=== PATIENT | male | born 1975 | race Caucasian/White ===

== ENCOUNTER 2016-07-26 06:59 | Inpatient (IN) | payer BC ==
[~2016-07-26] VITALS: Ht 182.9 cm; Wt 95.0 kg
[2016-07-26] MEDS ORDERED: SOD CHLORIDE 0.9% 1,000 ML IV STA (07:12)
[2016-07-26 07:55] LABS: BASOPHILS % 0.4 % (0.0-2.0); EOSINOPHILS # 0.1 10^3/ul (0.0-0.5); EOSINOPHILS % 1.4 % (0.0-7.0); HEMOGLOBIN 10.6 g/dl (14.0-18.0); LYMPHOCYTES # 2.6 10^3/ul (0.8-2.9); MEAN CORPUSCULAR HEMOGLOBIN 28.6 pg (29.0-33.0); MEAN CORPUSCULAR HGB CONC 34.1 g/dl (32.0-37.0); MEAN CORPUSCULAR VOLUME 83.8 fl (82.0-101.0); MEAN PLATELET VOLUME 8.6 fl (7.4-10.4); MONOCYTES % 9.5 % (0.0-11.0); NEUTROPHIL # 6.7 10^3/ul (1.6-7.5); NEUTROPHILS % 63.7 % (39.0-77.0); PLATELET COUNT 344 10^3/UL (140-440); RED BLOOD COUNT 3.69 10^6/ul (4.70-6.10); RED CELL DISTRIBUTION WIDTH 12.8 % (11.5-14.5); UNCORRECTED WBC 10.6 10^3/ul (4.8-10.8); WHITE BLOOD COUNT 10.6 10^3/ul (4.8-10.8)
[2016-07-26 07:58] LABS: ALBUMIN 3.9 g/dl (3.3-4.9)
[2016-07-26 07:59] LABS: INR 1.03; PARTIAL THROMBOPLASTIN TIME 29.4 Sec (25.0-35.0); POTASSIUM 4.5 mmol/L (3.5-5.1); PROTIME 13.5 Sec (12.2-14.2); PT RATIO 1.1
[2016-07-26 08:01] LABS: ALBUMIN/GLOBULIN RATIO 0.95; BILIRUBIN,INDIRECT 0.9 mg/dl (0-1.1); BILIRUBIN,TOTAL 0.9 mg/dl (0.2-1.3); CREATININE 0.91 mg/dl (0.61-1.24)
[2016-07-26 08:02] LABS: CALCIUM 9.6 mg/dl (8.4-10.2)
[2016-07-26 08:04] LABS: CONDITION 1
[2016-07-26 08:30] LABS: ADD UMIC YES; URINE BILIRUBIN (Dip) 1+ (NEGATIVE); URINE BLOOD (Dip) 3+ (NEGATIVE); URINE GLUCOSE (Dip) NEGATIVE (NEGATIVE); URINE KETONES (Dip) NEGATIVE (NEGATIVE); URINE LEUKOCYTE ESTERASE (Dip) NEGATIVE (NEGATIVE); URINE NITRITE (Dip) POSITIVE (NEGATIVE); URINE TOTAL PROTEIN (Dip) 4+ (NEGATIVE); URINE UROBILINOGEN (Dip) 1.0 E.U./dL (0.1-1.0)
[2016-07-26] MEDS ORDERED: SOD CHLORIDE 0.9% 100 ML ONE (08:45)
[2016-07-26] MEDS ORDERED: IOHEXOL 300MG/ML 150 ML BTL ONE (08:45)
[2016-07-26 09:00] LABS: URINE COLOR RED (YELLOW)
[2016-07-26 09:01] LABS: SQUAMOUS EPITHELIAL CELL,UR FEW; URINE RBCS >200 /HPF (0)
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
[2016-07-26] MEDS ORDERED: ONDANSETRON 4 MG INJ IV PRN ×2 (10:00→10:30)
[2016-07-26] MEDS ORDERED: ACETAMINOPHEN 325 MG TAB PO PRN ×2 (10:00→10:30)
[2016-07-26 10:20] VITALS: TEMP 98.2
[2016-07-26] MEDS ORDERED: NACL 0.9% 3 ML SYG IV SCH (10:30)
[2016-07-26] MEDS ORDERED: ACETAMINOPHEN 650 MG SUPP PR PRN (10:30)
[2016-07-26] MEDS ORDERED: DOCUSATE SODIUM 100 MG CAP PO PRN (10:30)
[2016-07-26 10:54] VITALS: BP 123/69; RESP 18
[2016-07-26 11:07] VITALS: BP 123/69; PULSE 86; RESP 18
[2016-07-26] MEDS: DEXTROSE 5%-0.45% NACL 1,000 ML IV SCH (11:20)
[2016-07-26 11:35] LABS: ICTOTEST NEGATIVE (NEGATIVE)
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
[2016-07-26] MEDS: CIPROFLOXACIN 400MG/D5W 200 ML IVPB SCH ×2 (13:54→20:50)
[2016-07-26 14:22] LABS: HEMATOCRIT 29.9 % (42.0-52.0); HEMOGLOBIN 10.3 g/dl (14.0-18.0)
[2016-07-26] MEDS: morphine 2 MG INJ IV PRN ×2 (15:02→23:01)
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
[2016-07-26 20:06] LABS: HEMATOCRIT 28.6 % (42.0-52.0); HEMOGLOBIN 9.8 g/dl (14.0-18.0)
[2016-07-26 20:47] VITALS: BP 122/88; RESP 19
[2016-07-26] MEDS ORDERED: LIDOCAINE 2% JELLY 30 ML TOP ONE (23:30)
[2016-07-27] MEDS ORDERED: SODIUM CHLORIDE 0.9% 1L IRRIG IRR SCH
[2016-07-27] MEDS: DEXTROSE 5%-0.45% NACL 1,000 ML IV SCH ×2 (03:15→12:53)
[2016-07-27] MEDS: morphine 2 MG INJ IV PRN ×2 (07:01→17:55)
[2016-07-27 08:37] VITALS: BP 114/68; RESP 16
[2016-07-27] MEDS: HYDROCODONE/APAP (5/325) TAB PO PRN ×4 (09:09→23:14)
[2016-07-27] MEDS: CIPROFLOXACIN 400MG/D5W 200 ML IVPB SCH ×2 (09:10→20:45)
[2016-07-27 09:26] LABS: BASOPHILS % 0.4 % (0.0-2.0); EOSINOPHILS # 0.1 10^3/ul (0.0-0.5); EOSINOPHILS % 1.1 % (0.0-7.0); HEMATOCRIT 29.1 % (42.0-52.0); HEMOGLOBIN 9.8 g/dl (14.0-18.0); LYMPHOCYTES # 2.3 10^3/ul (0.8-2.9); LYMPHOCYTES % 22.1 % (15.0-51.0); MEAN CORPUSCULAR HEMOGLOBIN 28.3 pg (29.0-33.0); MEAN CORPUSCULAR HGB CONC 33.7 g/dl (32.0-37.0); MEAN PLATELET VOLUME 8.1 fl (7.4-10.4); MONOCYTE # 0.8 10^3/ul (0.3-0.9); MONOCYTES % 7.8 % (0.0-11.0); NEUTROPHILS % 68.6 % (39.0-77.0); PLATELET COUNT 354 10^3/UL (140-440); RED BLOOD COUNT 3.47 10^6/ul (4.70-6.10); RED CELL DISTRIBUTION WIDTH 12.9 % (11.5-14.5); UNCORRECTED WBC 10.2 10^3/ul (4.8-10.8); WHITE BLOOD COUNT 10.2 10^3/ul (4.8-10.8)
[2016-07-27 09:31] LABS: ALBUMIN 3.8 g/dl (3.3-4.9)
[2016-07-27 09:32] LABS: POTASSIUM 4.7 mmol/L (3.5-5.1)
[2016-07-27 09:34] LABS: ALBUMIN/GLOBULIN RATIO 0.95; BILIRUBIN,INDIRECT 0.7 mg/dl (0-1.1); BILIRUBIN,TOTAL 0.7 mg/dl (0.2-1.3); CALCIUM 9.1 mg/dl (8.4-10.2); CONDITION 1; CREATININE 0.96 mg/dl (0.61-1.24); TOTAL PROTEIN 7.8 g/dl (6.1-8.1)
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
[2016-07-27] MEDS ORDERED: MAGNESIUM CITRATE 300 ML BTL PO ONE (13:30)
[2016-07-27] MEDS ORDERED: POLYETHYLENE GLYCOL 17 GM PACKET PO PRN (15:00)
[2016-07-27] MEDS ORDERED: DOCUSATE SODIUM 100 MG CAP PO ONE (15:00)
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
[2016-07-27] MEDS: CEFTRIAXONE 1 GM/50 ML (PMX) 50 ML IVPB SCH (17:56)
[2016-07-27 20:12] VITALS: BP 132/79; RESP 18
[2016-07-28] MEDS: DEXTROSE 5%-0.45% NACL 1,000 ML IV SCH ×3 (02:04→20:08)
[2016-07-28] MEDS: HYDROCODONE/APAP (5/325) TAB PO PRN (05:46)
[2016-07-28 06:13] LABS: BASOPHIL # 0.1 10^3/ul (0.0-0.1); BASOPHILS % 0.4 % (0.0-2.0); EOSINOPHILS % 0.1 % (0.0-7.0); HEMATOCRIT 29.1 % (42.0-52.0); LYMPHOCYTES # 2.4 10^3/ul (0.8-2.9); LYMPHOCYTES % 15.5 % (15.0-51.0); MEAN CORPUSCULAR HEMOGLOBIN 28.5 pg (29.0-33.0); MEAN CORPUSCULAR HGB CONC 34.4 g/dl (32.0-37.0); MEAN CORPUSCULAR VOLUME 82.9 fl (82.0-101.0); MONOCYTE # 1.3 10^3/ul (0.3-0.9); MONOCYTES % 8.2 % (0.0-11.0); NEUTROPHIL # 11.7 10^3/ul (1.6-7.5); NEUTROPHILS % 75.8 % (39.0-77.0); PLATELET COUNT 363 10^3/UL (140-440); RED BLOOD COUNT 3.52 10^6/ul (4.70-6.10); RED CELL DISTRIBUTION WIDTH 12.8 % (11.5-14.5); UNCORRECTED WBC 15.5 10^3/ul (4.8-10.8); WHITE BLOOD COUNT 15.5 10^3/ul (4.8-10.8)
[2016-07-28 06:28] LABS: CONDITION 1
[2016-07-28 06:32] LABS: POTASSIUM 4.3 mmol/L (3.5-5.1)
[2016-07-28 06:35] LABS: CREATININE 1.07 mg/dl (0.61-1.24)
[2016-07-28 06:36] LABS: ALBUMIN 3.7 g/dl (3.3-4.9); CALCIUM 9.3 mg/dl (8.4-10.2)
[2016-07-28 06:39] LABS: TOTAL PROTEIN 7.3 g/dl (6.1-8.1)
[2016-07-28 07:48] VITALS: BP 115/68; RESP 20
[2016-07-28] MEDS: DOCUSATE SODIUM 100 MG CAP PO SCH (08:42)
[2016-07-28] MEDS: CIPROFLOXACIN 400MG/D5W 200 ML IVPB SCH ×2 (08:42→20:08)
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
[2016-07-28] MEDS: CEFTRIAXONE 1 GM/50 ML (PMX) 50 ML IVPB SCH (15:38)
[2016-07-28 20:02] VITALS: BP 108/71; PULSE 91; RESP 18
[2016-07-28 20:15] VITALS: BP 128/72; RESP 22
[2016-07-29] MEDS: CIPROFLOXACIN 400MG/D5W 200 ML IVPB SCH (08:02)
[2016-07-29] MEDS: DOCUSATE SODIUM 100 MG CAP PO SCH (08:02)
[2016-07-29 08:17] VITALS: BP 109/56; RESP 20
[2016-07-29 11:53] LABS: BASOPHILS % 0.4 % (0.0-2.0); EOSINOPHILS # 0.1 10^3/ul (0.0-0.5); EOSINOPHILS % 0.7 % (0.0-7.0); HEMATOCRIT 29.8 % (42.0-52.0); HEMOGLOBIN 10.1 g/dl (14.0-18.0); LYMPHOCYTES # 2.6 10^3/ul (0.8-2.9); LYMPHOCYTES % 25.2 % (15.0-51.0); MEAN CORPUSCULAR HEMOGLOBIN 28.5 pg (29.0-33.0); MEAN CORPUSCULAR VOLUME 83.9 fl (82.0-101.0); MEAN PLATELET VOLUME 7.7 fl (7.4-10.4); MONOCYTES % 9.9 % (0.0-11.0); NEUTROPHIL # 6.5 10^3/ul (1.6-7.5); NEUTROPHILS % 63.8 % (39.0-77.0); PLATELET COUNT 422 10^3/UL (140-440); RED BLOOD COUNT 3.55 10^6/ul (4.70-6.10); RED CELL DISTRIBUTION WIDTH 13.4 % (11.5-14.5); UNCORRECTED WBC 10.1 10^3/ul (4.8-10.8); WHITE BLOOD COUNT 10.1 10^3/ul (4.8-10.8)
[2016-07-29 11:54] LABS: CONDITION 1
--- NOTE | 2016-07-29 15:05 | PDOCDIS ---
Discharge Instructions CONDITION Patient Condition: Good HOME CARE INSTRUCTIONS: Special Diet: regular ACTIVITY: Activity Restrictions: Slowly Increase Activity Rest between Activity Avoid heavy lifting Do not operate Power Tool FOLLOW UP/APPOINTMENTS Appointments Follow up with Urology as out-pt Follow-up primary care physician JOEL IBARRA MD Jul 29, 2016 15:05
[2016-07-29] MEDS ORDERED: HYDR-906 PO (15:10)
[2016-07-29] MEDS ORDERED: CIPR500T4 PO (15:10)
[2016-07-29] MEDS ORDERED: POLY17PO6 PO (15:10)
[2016-07-29] MEDS ORDERED: DOCU-144 PO (15:10)
[2016-07-29] MEDS: CEFTRIAXONE 1 GM/50 ML (PMX) 50 ML IVPB SCH (15:30)
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
== END 2016-07-29 18:10 | disposition home or self-care (01) | DRG 699 ==
LOC: E/R 06:59 → PP2 09:35
PROVIDERS: ADMIT Family Medicine; ATTEND Family Medicine
DX: S37.062A Major laceration of left kidney, initial encounter (principal); J90 Pleural effusion, not elsewhere classified; J98.11 Atelectasis; R31.0 Gross hematuria; S37.022A Major contusion of left kidney, initial encounter; V29.9XXA Motorcycle rider (driver) (passenger) injured in unspecified traffic accident, initial encounter; R74.0 Nonspecific elevation of levels of transaminase and lactic acid dehydrogenase [LDH]; Y92.410 Unspecified street and highway as the place of occurrence of the external cause
CPT/HCPCS: 36415; 74177; 80048; 80053; 80076; 81001; 81003; 83690; 83735; 85014; 85018; 85025; 85610; 85730; J0696; J0744; J2270; J2405; J7030; J7042; Q9967